=== PATIENT | male | born 1950 | race Caucasian/White ===

== ENCOUNTER → 2016-11-15 | Outpatient (CLI) | payer MEDICARE, OTHER ==
[2016-11-15 12:41] LABS: FREE T3 2.92 PG/ML (2.18-3.98); FREE T4 1.12 NG/DL (0.76-1.46)
== END ==
LOC: CLAB 11:43
PROVIDERS: ATTEND Internal Medicine Cardiovascular Disease
DX: I48.91 Unspecified atrial fibrillation (principal); I48.92 Unspecified atrial flutter; I49.5 Sick sinus syndrome; R06.02 Shortness of breath; R07.9 Chest pain, unspecified
CPT/HCPCS: 36415; 84439; 84443; 84481

== ENCOUNTER → 2016-11-25 | Outpatient (CLI) | payer MEDICARE, OTHER ==
--- NOTE | 2016-12-06 09:33 | RSPPFT ---
DATE OF PROCEDURE: 11/25/16 COMMENTS: Spirometry shows FEV1 at 135% of predicted, FVC at 111% indicating normal spirometry. The total lung capacity is 105%. Diffusion is normal at 133%. IMPRESSION: 1. Normal spirometry. 2. Normal lung volumes. 3. Normal diffusion capacity. 4. No abnormalities noted on this study explaining shortness of breath.
== END ==
LOC: HRSP 10:41
PROVIDERS: ATTEND Internal Medicine Cardiovascular Disease
DX: R06.02 Shortness of breath (principal)
CPT/HCPCS: 94060; 94726; 94729